=== PATIENT | female | born 1945 ===

== ENCOUNTER 2021-01-11 16:12 | Emergency (ER) | payer MEDICARE, SELFPAY ==
--- NOTE | ~2021-01-11 | XR_ITS ---
XR shoulder RT min 2V DATE: 01/11/2021 17:00 INDICATION: Fall. Limited range of motion of shoulder, minimal right shoulder pain TECHNIQUE: 4 views COMPARISON: None FINDINGS: There is diffuse osteopenia. There are degenerative changes of the right acromioclavicular and glenohumeral joints. No fracture or dislocation, periosteal reaction or bone destruction or abnormal right shoulder soft tissue calcific ation is evident. Probable rotator cuff atrophy. There is prominent degenerative disc disease at C5-6 and C6-7. There is scoliosis and degenerative spurring of the thoracic spine. IMPRESSION: Diffuse osteopenia No fracture or dislocation of right shoulder Degenerative changes at the right acromioclavicular and glenohumeral joints Probable rotator cuff atrophy. Reviewed, dictated and finalized at location A.
--- NOTE | ~2021-01-11 | XR_ITS ---
XR elbow RT 2V DATE: 01/11/2021 17:00 INDICATION: Fall. Right upper extremity pain, limited motion TECHNIQUE: AP and lateral views COMPARISON: None FINDINGS: No fracture or dislocation or joint effusion. No periosteal reaction or bone destruction. IMPRESSION: No significant abnormality of right elbow Reviewed, dictated and finalized at location A.
--- NOTE | ~2021-01-11 | XR_ITS ---
XR ribs RT 2V DATE: 01/11/2021 17:00 INDICATION: Fall. Lateral right rib pain at rest level TECHNIQUE: 4 views of right ribs COMPARISON: 01/08/2017 two-view chest FINDINGS: There is diffuse osteopenia. No displaced right rib fracture is detected. The included lung del valle are clear. No pleural effusion or pneumothorax is noted on the right. There is scoliosis and degenerative spurring of the thoracic spine. Surgical clips, right upper quadrant, consistent with cholecystectomy. IMPRESSION: No displaced right rib fracture detected Diffuse osteopenia Reviewed, dictated and finalized at location A.
[2021-01-11 16:37] VITALS: BP 142/64; PULSE 63; RESP 18; TEMP 36.9; O2SAT 97
--- NOTE | 2021-01-11 17:02 | ED.FALL ---
HPI - Fall General Chief Complaint: Fall Stated Complaint: fell yesterday, R arm pain, R sided rib pain Source: patient and family Mode of arrival: ambulatory History of Present Illness HPI Narrative: this is a 76-year-old female with history of Parkinson's disease, of some at home and going out on to her outdoor patio and tripped and fell causing pain to her right shoulder and arm and right rib area, currently pain level is about a 4/10 has decreased range of motion secondary to pain. There is no shortness of breath no chest pain no fever chills no loss of consciousness. complaint: fall Onset (ago): day(s) Fall from: standing Fall witnessed: yes, by family Place fall occurred: home Loss of consciousness: none Prolonged down time: no Symptoms prior to fall: none and other Context: tripped/slipped Related Data Home Medications Medication Instructions Recorded Confirmed anastrozole 1 mg PO DAILY 01/11/21 01/11/21 aspirin 81 mg PO DAILY 01/11/21 01/11/21 cyclosporine [Restasis] 1 drp EACH EYE BID 01/11/21 01/11/21 donepezil 10 mg PO DAILY 01/11/21 01/11/21 metformin 500 mg PO DAILY 01/11/21 01/11/21 mirtazapine 7.5 mg PO DAILY 01/11/21 01/11/21 multivit with min-folic acid 1 tablet PO DAILY 01/11/21 01/11/21 [Adult Multivitamin Extra VitD3] propranolol 120 mg PO DAILY 01/11/21 01/11/21 quetiapine 25 mg PO HS 01/11/21 01/11/21 sertraline 50 mg PO DAILY 01/11/21 01/11/21 Allergies Allergy/AdvReac Type Severity Reaction Status Date / Time celecoxib Allergy Unknown Verified 06/28/15 10:54 NKDA/ NO LATEX ALLERGY Allergy Unknown Uncoded 10/19/02 15:24 NKFA Allergy Unknown Uncoded 10/19/02 15:24 Review of Systems Review of Systems: All systems reviewed & are unremarkable except as noted in HPI and below PMFSH Past Medical History Medical History Parkinsons disease Family History Family History Father Family history of lung cancer Family history of heart disease in male family member before age 55 Mother Family history of emphysema Sister Family history of type 2 diabetes mellitus Familial Alzheimer's disease of late onset Father Acute myocardial infarction Family history of malignant neoplasm Social History Social History Smoking status: Never smoker Exam Const: General: no acute distress Orientation/consciousness: patient oriented x3 HENMT: Head: normal to inspection Eyes: Conjunctivae: conjunctivae normal Pupils: Equal, round and reactive pupils present EOM: EOMs intact bilaterally Neck: Neck: normal visual inspection, no lymphadenopathy and no meningeal signs Chest: Chest palpation & inspection: normal inspection of the chest Resp: Effort & Inspection: normal respiratory effort Auscultation: clear to auscultation bilaterally Cardio: Rate: regular rate Rhythm: regular rhythm GI: Auscultation: normal bowel sounds : General: Yes no CVA tenderness Back/Spine/Pelvis: Back: no CVA tenderness Skin: General skin exam: normal color Rashes: no rashes Neuro: General: patient oriented x3 and moves all extremities Extrem: Other: has decreased range of motion right shoulder and tenderness in the right rib area with palpation Psych: Mental Status: mental status grossly normal Affect: normal affect Course Course Emergency Course: patient declined pain medication, she states that her pain level is tolerable just sitting without movement, x-rays reviewed the patient Vital Signs Vital signs: Vital Signs Temperature 36.9 C 01/11/21 16:37 Pulse Rate 63 01/11/21 16:37 Respiratory Rate 18 01/11/21 16:37 Blood Pressure 142/64 H 01/11/21 16:37 Pulse Oximetry 97 01/11/21 16:37 Temperature 36.9 C 01/11/21 16:37 Pulse Rate 63 01/11/21 16:37 Respiratory Rate 18 01/11/21 16:37 Blood Pressure
== END 2021-01-11 17:36 | disposition home or self-care (01) ==
PROVIDERS: Emergency Provider Emergency Medicine; PCP Physician Assistant
DX: S46.001A Unspecified injury of muscle(s) and tendon(s) of the rotator cuff of right shoulder, initial encounter (principal); W01.0XXA Fall on same level from slipping, tripping and stumbling without subsequent striking against object, initial encounter
CPT/HCPCS: 71100; 73030; 73070; 99282; 99284; A4565

== ENCOUNTER 2021-10-09 11:18 | Outpatient (CLI) | payer MEDICARE, SELFPAY ==
--- NOTE | ~2021-10-09 | XR_ITS ---
XR lumbar spine 2-3V DATE: 10/09/2021 11:41 INDICATION: Low back pain, bilateral leg weakness. TECHNIQUE: AP, lateral, coned lateral lumbosacral views COMPARISON: Numerous MRI lumbar spine 06/17/2014 lumbar spine FINDINGS: There is diffuse osteopenia. Included lower thoracic and lumbar pedicles are intact. No fracture or bone destruction of the lumbar spine. There is mild degenerative disc disease, with mi ld degenerative spurring. There is degenerative change at the sacroiliac joints. Status post cholecystectomy. IMPRESSION: Osteopenia Mild degenerative change of the lumbar spine Reviewed, dictated and finalized at location A.
== END 2021-10-09 11:19 | disposition home or self-care (01) ==
LOC: CHSIMG 11:20
PROVIDERS: PCP Physician Assistant; Visit Provider Physician Assistant
DX: M54.51 Vertebrogenic low back pain (principal)
CPT/HCPCS: 72100

== ENCOUNTER 2024-06-25 12:01 | Emergency (ER) | payer MEDICARE, SELFPAY ==
[2024-06-25 12:03] VITALS: BP 156/102; PULSE 66; RESP 20; TEMP 36.7; O2SAT 100
--- NOTE | 2024-06-25 12:11 | ED.UPPEXIN ---
HPI - Extremity Injury (Upper) General Chief Complaint: Extremity Injury, Upper Stated Complaint: numbness to left arm Time Seen by Provider: 06/25/24 12:02 Source: patient Mode of arrival: ambulatory Limitations: no limitations History of Present Illness HPI narrative: Patient is an 79-year-old female with left upper extremity tingling and pain for the past 3 days. She also has some right lower extremity similar symptoms of tingling and pain for the past day. No chest pain or shortness of breath. No other neurological complaints or deficits. No definite injury. patient has Parkinson's and dementia. MD complaint: injury to: left, shoulder, arm and forearm Onset (ago): day(s) ( Three) Other injuries: none Place: home Severity: mild Severity scale (1-10): 3 Relieving factors: none Exacerbating factors: none Context: other ( no injury; patient having left upper extremity and right lower extremity pain and numbness at times) Associated symptoms: denies other symptoms Treatments prior to arrival: other ( none) Related Data Home Medications ?Medication ?Instructions ?Recorded ?Confirmed ?Last Taken ?Type anastrozole 1 mg tablet 1 mg PO DAILY 01/11/21 01/11/21 Unknown History donepezil 10 mg tablet 10 mg PO DAILY 01/11/21 01/11/21 Unknown History sertraline 50 mg tablet 50 mg PO DAILY 01/11/21 01/11/21 Unknown History atorvastatin 10 mg tablet (Lipitor) 10 mg PO DAILY 06/25/24 Unknown History losartan 50 mg tablet (Cozaar) 50 mg PO DAILY 06/25/24 Unknown History memantine 10 mg tablet (Namenda) 10 mg PO BID 06/25/24 Unknown History Allergies Allergy/AdvReac Type Severity Reaction Status Date / Time celecoxib Allergy Mild Unknown Verified 06/25/24 13:07 Review of Systems Review of Systems: All systems reviewed & are unremarkable except as noted in HPI and below Constitutional: Constitutional: Reports no additional constitutional complaints Eyes: Eyes: Reports no additional eye complaints ENT: Reports system reviewed and no additional complaints, except as documented Cardiovascular: Cardiovascular: Reports no additional cardiovascular complaints Respiratory: Respiratory: Reports no additional respiratory complaints Gastrointestinal: Gastrointestinal: Reports no additional gastrointestinal complaints Genitourinary: Genitourinary: Reports no additional female genitourinary complaints Musculoskeletal: Musculoskeletal: Reports no additional musculoskeletal complaints Integumentary/Breasts: Skin/Breast: Reports system reviewed and no additional complaints, except as docu Neurologic: Reports system reviewed and no additional complaints, except as documented Psychiatric: Psychiatric: Reports no additional psychiatric complaints Endocrine: Endocrine: Reports no additional endocrine complaints Hematologic/Lymphatic: Hematologic/Lymphatic: Reports no additional hematologic/lymphatic complaints Allergic/Immunologic: Allergic/Immunologic: Reports no additional allergic/immunologic complaints PMFSH Past Medical History Medical History Parkinsons disease Family History Family History Father Family history of lung cancer Family history of heart disease in male family member before age 55 Mother Family history of emphysema Sister Family history of type 2 diabetes mellitus Familial Alzheimer's disease of late onset Father Acute myocardial infarction Family history of malignant neoplasm Social History Social History Smoking status: Never smoker Exam Const: General: healthy appearing Nutritional Appearance: well nourished Orientation/consciousness: patient oriented x3 Limitations: no limitations HENMT: Head: normal to inspection Ears: external ears normal Face/Nose/Sinus: Normal external nose present Eyes: Conjunctivae: conjunctivae normal Pupils: Equal, round and reactive pupils present EOM: EOMs intact bilaterally Neck: Neck: normal visual inspection Chest: Chest palpation & inspection: normal inspection of the chest Resp: Effort & Inspection: normal respiratory effort and not labored Auscultation: clear to auscultation bilaterally and no crackles Cardio: Rate: regular rate Rhythm: regular rhythm Heart sounds: no murmurs GI: Inspection: non-distended GI Palp: Yes Soft to palpation and No Tenderness to palpation present (GI) Auscultation: normal bowel sounds : General: Yes bladder normal to palpation Back/Spine/Pelvis: Back: no CVA tenderness Skin: General skin exam: normal color Rashes: no rashes Wounds: no wounds Neuro: General: patient oriented x3, moves all extremities, no meningeal signs, no focal motor deficits and CN's II-XI intact bilaterally Cranial nerves: Yes Nystagmus not present Speech: normal speech Gait exam (Neuro): Normal gait present Other: Fast exam negative, NIH score is 0, GCS is 15 Extrem: General: normal to inspection Psych: Mental Status: mental status grossly normal Affect: normal affect Attitude: cooperative Other: baseline dementia Course Vital Signs Vital signs: Vital Signs Temperature 36.7 C 06/25/24 12:03 Pulse Rate 66 06/25/24 12:03 Respiratory Rate 20 06/25/24 12:03 Blood Pressure 156/102 H 06/25/24 12:03 Pulse Oximetry 100 06/25/24 12:03 Oxygen Delivery Room Air 06/25/24 12:03 Temperature 36.7 C 06/25/24 12:03 Pulse Rate 66 06/25/24 12:03 Respiratory Rate 20 06/25/24 12:03 Blood Pressure 156/102 H 06/25/24 12:03 Pulse Oximetry 100 06/25/24 12:03 Oxygen Delivery Room Air 06/25/24 12:03 MDM - Extremity Injury (Upper) MDM Narrative Medical decision making narrative: patient is an 79-year-old female with left upper extremity and right lower extremity numbness and pain at times. No focal neurological deficits otherwise. We will do a workup at this time. EKG done on entry was negative. Complete workup was negative for acute process. Likely this is impingement of her cervical spine or left shoulder area as well as the lumbar spine or knee impingements. We will try steroids and muscle relaxant. Lab Data Attestation: I reviewed the patient's lab results. 06/25/24 12:54 06/25/24 12:54 Labs: Lab Results 06/25/24 06/25/24 Range/Units 12:54 14:55 WBC 7.7 (4.8-10.8) K/mm3 RBC 4.16 L (4.20-5.40) M/mm3 Hgb 11.9 (11.7-13.8) g/dL Hct 38.1 (35.0-42.0) % MCV 91.6 (78.0-102.0) fL MCH 28.6 (27.0-31.0) pg MCHC 31.2 L (32-36) g/dL RDW 13.4 (11.6-14.4) % Plt Count 286 (150-420) K/mm3 MPV 8.8 L (9.2-11.8) fl Immature Gran % (Auto) 0.5 H (0.0-0.0) % Neut % (Auto) 73.7 H (50.0-70.0) % Lymph % (Auto) 16.4 L (18.0-42.0) % Grant % (Auto) 7.2 (2.0-11.0) % Eos % (Auto) 1.4 (1.0-6.0) % Baso % (Auto) 0.8 (0.0-1.0) % Lymph # (Auto) 1.26 (1.10-4.50) K/mm3 Grant # (Auto) 0.55 (0.10-0.90) K/mm3 Eos # (Auto) 0.11 (0.02-0.50) K/mm3 Baso # (Auto) 0.06 (0.00-0.10) K/mm3 Abs Immat Gran (auto) 0.04 H (0.00-0.00) K/mm3 Absolute Neuts (auto) 5.67 (1.70-7.20) K/mm3 Absolute Nucleated RBC 0.00 (0.00-0.00) K/mm3 Nucleated RBC % 0.0 (0-0.0) % PT 10.8 (9.50-12.1) Seconds INR 1.0 APTT 27.6 (23.9-30.70) Sec Sodium 139 (136-145) mmol/L Potassium 4.4 (3.5-5.1) mmol/L Chloride 101 (98-108) mmol/L Carbon Dioxide 27 (21-32) mmol/L Anion Gap 11 (4-12) mmol/L BUN 21 H (7-18) mg/dL Creatinine 0.96 (0.55-1.02) mg/dL Estim Creat Clear Calc 39 ml/min Estimated GFR 56 L (59 - ) Glucose 103 H (70-99) mg/dL Calculated Osmolality 291 (285-295) mOsm/kg Calcium 9.8 (8.5-10.1) mg/dL Total Bilirubin 0.5 (0.00-1.00) mg/dL AST 14 L (15-37) U/L ALT 15 (14-59) U/L Alkaline Phosphatase 81 (46-116) U/L Troponin I 6.4 (0.00-60.4) ng/L Total Protein 7.0 (6.4-8.2) g/dL Albumin 3.8 (3.4-5.0) g/dL Urine Color Light yellow (Yellow) Urine Appearance Clear (Clear) Urine pH 6.0 (5.0-8.0) Ur Specific Deal 1.010 (1.010-1.020) Urine Protein Negative (Negative) Urine Glucose (UA) Negative (Negative) Urine Ketones Negative (Negative) Ur Blood (Man) Negative (Negative) Urine Nitrate Negative (Negative) Urine Bilirubin Negative (Negative) Urine Urobilinogen 0.2 (0.2-1.0) mg/dL Leukocyte Esterase Rfl Negative (Negative) DEEP/UL Imaging Data Attestation: I personally reviewed and interpreted this imaging study as follows: Radiologist's impression: CT scan of the head was negative for acute process CT C-spine shows acute strain but otherwise no acute findings ECG Data EKG #1: Attestation: I personally reviewed and interpreted this ECG as follows: ECG completion date: 06/25/24 ECG completion time: 12:36 EKG Interpretation: normal rate, sinus rhythm, no ectopy, non-specific ST changes, normal QRS, normal QT and left axis Discharge Plan Discharge Clinical Impression: Cervical radiculopathy, Lumbar radiculopathy Patient Disposition: Home, Self-Care Condition: Stable Instructions: Lumbar Radiculopathy (ED), Cervical Radiculopathy (ED) Patient Language: Namibian Prescriptions: New methylprednisolone [Medrol (Aidan)] 4 mg tablets,dose pack See Rx Instructions .ROUTE .COMPLEX Qty: 21 0RF Rx Instructions: orally per package directions cyclobenzaprine 5 mg tablet 5 mg PO BID PRN (Reason: pain) Qty: 20 0RF No Action atorvastatin [Lipitor] 10 mg tablet 10 mg PO DAILY memantine [Namenda] 10 mg tablet 10 mg PO BID losartan [Cozaar] 50 mg tablet 50 mg PO DAILY anastrozole 1 mg tablet 1 mg PO DAILY donepezil 10 mg tablet 10 mg PO DAILY sertraline 50 mg Tablet 50 mg PO DAILY Follow-up/Referrals: Tabatha,PRASANNA Lugo [Primary Care Provider] - Time of Disposition: 15:28
[2024-06-25 12:58] LABS: Basophils Absolute Auto 0.06 K/mm3 (0.00-0.10); Basophils Percent Auto 0.8 % (0.0-1.0); Eosinophils Absolute Auto 0.11 K/mm3 (0.02-0.50); Eosinophils Percent Auto 1.4 % (1.0-6.0); Hematocrit 38.1 % (35.0-42.0); Hemoglobin 11.9 g/dL (11.7-13.8); Immature Granulocyte Absolute 0.04 K/mm3 (0.00-0.00); Immature Granulocyte Percent A 0.5 % (0.0-0.0); Lymphocytes Absolute Auto 1.26 K/mm3 (1.10-4.50); Lymphocytes Percent Auto 16.4 % (18.0-42.0); Mean Corpuscular HGB Conc 31.2 g/dL (32-36); Mean Corpuscular Hemoglobin 28.6 pg (27.0-31.0); Mean Corpuscular Volume 91.6 fL (78.0-102.0); Mean Platelet Volume 8.8 fl (9.2-11.8); Monocytes Absolute Auto 0.55 K/mm3 (0.10-0.90); Monocytes Percent Auto 7.2 % (2.0-11.0); Neutrophils Absolute Auto 5.67 K/mm3 (1.70-7.20); Neutrophils Percent Auto 73.7 % (50.0-70.0); Platelet Count Result 286 K/mm3 (150-420); Red Blood Count 4.16 M/mm3 (4.20-5.40); Red Cell Distribution Width 13.4 % (11.6-14.4); White Blood Count 7.7 K/mm3 (4.8-10.8)
[2024-06-25 13:12] LABS: Partial Thromboplastin Time 27.6 Sec (23.9-30.70); Prothrombin Time 10.8 Seconds (9.50-12.1)
[2024-06-25 13:14] LABS: Alanine Aminotransferase 15 U/L (14-59); Albumin Level 3.8 g/dL (3.4-5.0); Alkaline Phosphatase 81 U/L (46-116); Anion Gap 11 mmol/L (4-12); Aspartate Amino Transferase 14 U/L (15-37); Bilirubin,Total 0.5 mg/dL (0.00-1.00); Blood Urea Nitrogen 21 mg/dL (7-18); Calcium 9.8 mg/dL (8.5-10.1); Carbon Dioxide 27 mmol/L (21-32); Chloride 101 mmol/L (98-108); Estimated CRCL calculation 39 ml/min; Estimated Glomerular Filt Rate 56; Glucose 103 mg/dL (70-99); Osmolality Calculated 291 mOsm/kg (285-295); Potassium 4.4 mmol/L (3.5-5.1); Sodium 139 mmol/L (136-145)
[2024-06-25 13:17] LABS: Troponin I 6.4 ng/L (0.00-60.4)
[2024-06-25 15:17] LABS: Add Urine Microscopic? NO; Appearance Urine Clear (Clear); Bilirubin Urine Negative (Negative); Blood Urine Negative (Negative); Color Urine Light Yellow (Yellow); Glucose Urine UA Negative (Negative); Ketones Urine Negative (Negative); Leukocyte Esterase Ur Negative LEU/UL (Negative); Nitrate Urine Negative (Negative); Protein Urine Negative (Negative); Urobilinogen Urine 0.2 mg/dL (0.2-1.0)
[2024-06-25 15:50] VITALS: BP 161/73; PULSE 65; RESP 20; TEMP 37.1; O2SAT 99
== END 2024-06-25 15:50 | disposition home or self-care (01) ==
PROVIDERS: Emergency Provider Emergency Medicine; PCP Physician Assistant
DX: M54.12 Radiculopathy, cervical region (principal); M54.16 Radiculopathy, lumbar region; G20.A1 Parkinson's disease without dyskinesia, without mention of fluctuations; Z79.899 Other long term (current) drug therapy
CPT/HCPCS: 36415; 70450; 72125; 80053; 81003; 84484; 85025; 85610; 85730; 93005; 99284

== ENCOUNTER 2025-03-30 09:22 | Outpatient (CLI) | payer MEDICARE, SELFPAY ==
[2025-03-30 10:02] LABS: Alanine Aminotransferase 19 U/L (6-35); Albumin Level 4.6 g/dL (3.5-5.1); Alkaline Phosphatase 68 U/L (38-126); Anion Gap 10 mmol/L (4-12); Aspartate Amino Transferase 26 U/L (14-36); Bilirubin,Total 0.5 mg/dL (0.2-1.3); Blood Urea Nitrogen 25 mg/dL (7-17); Calcium 10.2 mg/dL (8.4-10.2); Carbon Dioxide 29 mmol/L (22-30); Chloride 103 mmol/L (98-107); Estimated Glomerular Filt Rate 56; Glucose 134 mg/dL (65-110); Osmolality Calculated 300 mOsm/kg (285-295); Potassium 4.5 mmol/L (3.4-5.0); Sodium 142 mmol/L (137-145); Total Protein 6.8 g/dL (6.3-8.2)
--- OUTSIDE RECORDS SUMMARY | 2025-03-30 10:17 | XMS_ITS | Clinical Summary ---
Author Organization [facility] Address [address] [place] [address] Care Team Providers Care Guide Dog Mobility Instructor Name Role Phone Fly Mays Primary Care Provider [phone] Allergies Active Allergy Reactions Criticality Noted Date Comments Celecoxib Flushing (skin) Low 01/29/2022 Medications cholecalciferol (VITAMIN D-3) 2000 unit tablet Take by mouth Active aspirin 81 mg enteric coated tablet Take 1 tablet (81 mg total) by mouth daily Active cyanocobalamin (Vitamin B-12) 1,000 mcg tablet Take 1 tablet (1,000 mcg total) by mouth daily Active anastrozole (ARIMIDEX) 1 mg tablet Take 1 tablet (1 mg total) by mouth daily 2 Active ascorbic acid (VITAMIN C) 100 mg tablet Take 2 tablets (200 mg total) by mouth daily Active atenoloL-chlort halidone (TENORETIC) 50-25 mg per tablet Take 1 tablet by mouth daily Active QUEtiapine (SEROquel) 25 mg tablet Take 1 tablet (25 mg total) by mouth nightly 30 tablet 5 3 Active Additional Information Patient not taking.Reported on 12/13/2024 sertraline (ZOLOFT) 50 mg tablet 3 Active atorvastatin (LIPITOR) 10 mg tablet Take 1 tablet (10 mg total) by mouth daily Active donepeziL (ARICEPT) 10 mg tabletIndicatio ns:Alzheimer's disease with late onset (HCC) TAKE 1 TABLET BY MOUTH ONCE DAILY 90 tablet 3 5 Active memantine (NAMENDA) 10 mg tabletIndicatio ns:Alzheimer's disease with late onset (HCC) TAKE 1 TABLET BY MOUTH TWICE DAILY 180 tablet 3 5 Active losartan (COZAAR) 50 mg tablet 5 Active Active Problems Problem Noted Date Diagnosed Date Hallucination, visual 10/18/2022 ARIE (obstructive sleep apnea) 08/23/2022 Morbid (severe) obesity due to excess calories 0 07/24/2022 Alzheimer's disease with late onset 01/29/2022 Assessment & Plan (09/16/2022 11:27 AM CDT): Continue namenda 10mg twice daily by mouth Follow up in 6 months Will discuss anxiety component with PCP; discussed in detail with patient and daughter Surgical History Surgery Date Site/Laterality Comments TUBAL LIGATION PARTIAL HYSTERECTOMY 04/28/1977 - 04/27/1978 BREAST LUMPECTOMY 04/28/2015 - 04/27/2016 Left CHOLECYSTECTOMY 04/28/2012 - 04/27/2013 INCONTINENCE SURGERY FL FLUORO GUIDED LUMBAR PUNCTURE 03/08/2022 Right Medical History Medical History Date Comments Hypertension Cancer (HCC) History of breast cancer Obesity (BMI 35.0-39.9 without comorbidity) Diabetes mellitus on metformin Urinary incontinence Tremor of both hands Family History Medical History Relation Name Comments Alcohol abuse Brother Aneurysm Brother Allergies Child 1 missy Hypertension Child 1 missy Hypothyroidism Child 1 missy Adrenal disorder Child 2 fatimah Bipolar disorder Child 2 fatimah Migraines Child 2 fatimah Bipolar disorder Child 3 otto Macular degeneration Child 3 otto Heart attack Father Lung cancer Father Emphysema Mother Alzheimer's disease Sister 1 Dementia Sister 1 Alzheimer's disease Sister 2 Relation Name Status Comments Brother Child 1 msisy Alive Child 2 fatimah Alive Child 3 otto Alive Father Mother Sister 1 Sister 2 Alive Social History Tobacco Use Types Packs/Day Years Used Date Smoking Tobacco: Never Tobacco Cessation:Counseling Given: Not Answered Comments Unknown Sex and Gender Information Value Date Recorded Sex Assigned at Not on file Legal Sex Female 12:18 PM 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 Gender Identity Not on file Sexual Orientation Not on file Last Filed Vital Signs Vital Sign Reading Time Taken Comments Blood Pressure 122/58 12/13/2024 10:12 AM CDT Pulse 61 12/13/2024 10:12 AM CDT Temperature 36 C (96.8 F) 03/08/2022 10:30 AM 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 Respiratory Rate 18 03/28/2023 9:26 AM 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 Oxygen Saturation 97% 12/13/2024 10:12 AM CDT Inhaled Oxygen Concentration - - Weight 78.3 kg (172 lb 9.6 oz) 12/13/2024 10:12 AM CDT Height 152.4 cm (5') 12/13/2024 10:12 AM CDT Body Mass Index 33.71 12/13/2024 10:12 AM CDT Plan of Treatment Health Maintenance Due Date Last Done Comments Depression Screening 1945 DTaP/Tdap/Td Vaccine (1 - Tdap) 01/03/1955 Hepatitis B Screening 01/03/1962 Pneumococcal vaccine 65+ (1 of 2 - PCV) 01/03/1963 Well Visit 65+ 01/03/2009 Zoster Vaccine (2 of 2) 05/31/2022 04/05/2022, 12/18 Fall Risk Assessment 03/08/2023 03/08/2022 Covid-19 Vaccine (5 - 2024-2 6 season) 2024 08/16/2021, 02/22/2021, 08/04/2020, Additional history exists Influenza Vaccine (#1) 2024 , 03/19/2021, 02/17/2020, Additional history exists Osteoporosis Screening-Bone Density Scan 06/13/2025 06/13/2023, 06/13/2023, 02/28/2020, Additional history exists Insurance [facility] [place] [address] [facility] [employer] [employer] Advance Directives For more information, please contact: [phone] * Full Code (Latest Code Status on File) Date Activated Date Inactivated Comments 03/08/2022 9:25 AM 03/09/2022 5:00 AM Care Teams Guide Dog Mobility Instructor Relationship Specialty Start Date End Date Fly Mays PA [address] [place] [address] PCP - General Family Practice 01/13/21
--- OUTSIDE RECORDS SUMMARY | 2025-03-30 10:17 | XMS_ITS | Encounter Summary ---
Author Organization [facility] Address [address] [place] [address] Phone Care Team Providers Care Edging Machine Feeder Name Role Phone Fly Canales MD Unavailable Dom Nair MD Unavailable Unavailable Duke Harden MD Unavailable [phone] Fly Mays Primary Care Provider [phone] Reason for Visit * Reason Comments Medication Refill Encounter Details Date Type Department Care Team (Late st Contact Info) Description 04/08/2022 Refill [facility] [address] [place] [phone] Duke Harden MD [address] [place] [address] Medication Refill Social History Tobacco Use Types Packs/Day Years Used Date Smoking Tobacco: Never Smokeless Tobacco: Never Alcohol Use Standard Drinks/Week Comments No 0 (1 standard drink = 0.6 oz pur e alcohol) Sexually Active Control Partners Comments Never Comments No Sex and Gender Information Value Date Recorded Sex Assigned at Not on file Legal Sex Female 9:05 PM CDT Gender Identity Not on file Sexual Orientation Not on file COVID-19 Exposure Response Date Recorded In the last 10 days, have yo u been in contact with someone who was confirmed or suspected to have Coronavirus/COVID-19? No / Unsure 04/11/2022 8:22 AM MEDICAL EQUIPMENT TECHNICIAN documented as of this encounter Miscellaneous Notes * Telephone Encounter - Honey Barn RN - 04/08/2022 11:56 AM CST Refilled Anastrazole per last f/u note. Follow up in 5 months. CAL EQUIPMENT TECHNICIAN documented in this encounter Plan of Treatment Upcoming Encounters Date Type Department Care Team (Late st Contact Info) Description 04/05/2025 1:20 PM MEDICAL EQUIPMENT TECHNICIAN Office Visit [facility] Oncology Services [address] [place] [phone] Duke Harden MD [address] [place] [phone] Discharge Disposition: Discharged to home or Selfcare 04/05/2025 2:00 PM MEDICAL EQUIPMENT TECHNICIAN Clinical Support [facility] [address] [place] [phone] Duke Harden MD [address] [place] [id number] Discharge Disposition: Discharged to home or Selfcare documented as of this encounter Visit Diagnoses Diagnosis Breast cancer, stage 1, estrogen receptor positive, left documented in this encounter Care Teams Edging Machine Feeder Relationship Specialty Start Date End Date Fly Mays PAC [address] [place] [id number] PCP - General Physician Mineralogy Teacher 01/18/21 Fly Canales MD Consulting Physician Radiation Oncology 02/18/17 Dom Nair MD Consulting Physician General Surgery 03/24/17 Duke Harden MD [address] [place] [address] Consulting Physician Medical Oncology 01/11/20 documented as of this encounter
--- OUTSIDE RECORDS SUMMARY | 2025-03-30 10:17 | XMS_ITS ---
Author Organization [facility] Address [address] [place] [address] Phone Care Team Providers Care Assembly Person Name Role Phone Fly Canales MD Unavailable [phone] Dom Nair MD Unavailable Unavailable Duke Harden MD Unavailable [phone] Fly Mays Primary Care Provider [phone] Active Problems Problem Noted Date Diagnosed Date Obesity, Class II, BMI 35-39.9 04/16/2018 Overview (10/20/2018): BMI 38.17 on 04/16/2018. Low bone mass 02/06/2018 Stage 1 breast cancer, ER+, left 01/27/2018 Overview (04/26/2019): Pathological stage IB ([id number]) grade 2 ER/MT positive and HER2 negative IDC of her left breast. She had breast conserving surgery 01/20/2017. She was seen in Medical Oncology consultation not recommended to receive chemotherapy but was placed on Arimidex January 2017. She completed left breast radiotherapy 04/15/2017. Postmenopausal state 01/27/2018 History of therapeutic radiation 05/20/2017 Overview (05/20/2017): Completed left breast radiotherapy 04/15/2017 Prophylactic use of anastrozole (Arimidex) 03/17 Overview (01/15/2023): Started January 2017 with plan for 10 year duration because of breast cancer index score. Encounter for screening mamm ogram for malignant neoplasm of breast 02/19/2017 Obstructive sleep apnea hue tila with continuous positive airway pressure (CPAP) Current Treatment and Therapy Plans SUPPORT - PROLIA (DENOSUMAB) - OSTEOPENIA* Plan Start Date:02/22/2018 Plan Provider:Harvey Liriano MD Linked Problems Stage 1 breast cancer, ER+, leftLow bone mass Treatment Medications Current Day (Day 1, Cycle 15 - Planned for 10/04/2024) No medications scheduled. No medications schedul ed. Past Treatment and Therapy Plans No past plan information found. Resolved Problems Problem Noted Date Diagnosed Date Resolved Date Bleeding hemorrhoids 04/16/2018 019 Overview (10/20/2018): Off and on since childbirth but March 2018 had a more significant amount prompting her to go to the ED. Obesity, Class III, BMI 40-4 9.9 (morbid obesity) 10/08/2017 04/16/2018 History of left breast cancer 05/20/2017 10/20/2018 Overview (05/20/2017): Pathological stage IB ([id number]) grade 2 ER/MT positive and HER2 negative IDC of her left breast. She had breast conserving surgery. She was seen in Medical Oncology consultation not recommended to receive chemotherapy but was placed on Arimidex. She completed left breast radiotherapy 04/15/2017. Adverse effect of radiation 03/31/2017 05/20/2017 Metastatic cancer to axillary lymph nodes 03/24/2017 05/20/2017 Acute radiation dermatitis 03/24/2017 0 05/20/2017 Status post partial mastectomy of left breast 03/17/20 17 10/20/2018 Overview (03/17/2017): 01/20/2017 in conjunction with a left axillary sentinel lymph node biopsy. Status post lymph node biopsy 03/17/2017 10/20/2018 Overview (03/17/2017): Left axillary sentinel lymph node biopsy 01/20/2017 in conjunction with a left partial mastectomy. Obesity, Class II, BMI 35-39.9 03/17/2017 10/20/2018 Malignant neoplasm of upper- outer quadrant of left breast in female, estrogen receptor positive 02/27/2017 05/20/2017
--- OUTSIDE RECORDS SUMMARY | 2025-03-30 10:17 | XMS_ITS | Clinical Summary ---
Author Organization [facility] Address [address] [place] [address] Phone Care Team Providers Care Hand Printed Circuit Board Assembler Name Role Phone Fly Canales MD Unavailable [phone] Dom Nair MD Unavailable Unavailable Duke Harden MD Unavailable [phone] lFy Mays Primary Care Provider [phone] Allergies Active Allergy Reactions Criticality Noted Date Comments Celecoxib Itching 02/18/2017 Medications lisinopril (PRINIVIL, ZESTRIL) 5 MG Tablet Take 40 mg by mouth daily. Active Cyanocobalamin (VITAMIN B-12) 1000 MCG Tablet Take 1,000 mcg by mouth daily. Active Cholecalciferol (VITAMIN D) 2000 UNIT Tablet Take by mouth. Activ e denosumab (PROLIA) 60 MG/ML SolutionIndicat ions:every 6 months 60 mg by Subcutaneous route once. Indications: every 6 months Active atenolol-chlort halidone (TENORETIC) 50-25 MG Tablet Take 1 Tablet by mouth daily. Active memantine (NAMENDA) 10 MG Tablet Take 1 Tablet by mouth 2 times daily. 3 Active donepezil (ARICEPT) 5 MG Tablet Take 10 mg by mouth nightly. 3 Active Ascorbic Acid 100 MG Tablet Take 200 mg by mouth. Active Propranolol HCl SR Beads 120 MG CAPSULE SR 24 HR Take 120 mg by mouth. Active atorvastatin (LIPITOR) 10 MG Tablet Take 10 mg by mouth daily. Active anastrozole (ARIMIDEX) 1 MG TabletIndicatio ns:Breast cancer, stage 1, estrogen receptor positive, left TAKE 1 TABLET BY MOUTH DAILY 90 Tablet 3 5 Active Active Problems Problem Noted Date Diagnosed Date Obesity, Class II, BMI 35-39.9 04/16/2018 Overview (10/20/2018): BMI 38.17 on 04/16/2018. Low bone mass 02/06/2018 Stage 1 breast cancer, ER+, left 01/27/2018 Overview (04/26/2019): Pathological stage IB ([id number]) grade 2 ER/CA positive and HER2 negative IDC of her [...] tila with continuous positive airway pressure (CPAP) Resolved Problems Problem Noted Date Diagnosed Date Resolved Date Bleeding hemorrhoids 04/16/2018 019 Overview (10/20/2018): Off and on since childbirth but March 2018 had a more significant amount prompting her to go to the ED. Obesity, Class III, BMI 40-4 9.9 (morbid obesity) 10/08/2017 04/16/2018 History of left breast cancer 05/20/2017 10/20/2018 Overview (05/20/2017): Pathological stage IB ([id number]) grade 2 ER/CA positive and HER2 negative IDC of her [...] in female, estrogen receptor positive 02/27/2017 05/20/2017 Encounters Date Type Department Care Team Description 01/29/2025 [facility] [address] [place] [address] Duke Harden MD Medication Refill from Last 3 Months Family History Medical History Relation Name Comments Lung Cancer Father Smoker Diabetes Maternal Grandmother Emphysema Mother Breast Cancer Sister 1 Liver Disease Sister 2 Diabetes Sister 3 Hypertension Sister 3 Diabetes Sister 4 Relation Name Status Comments Father Maternal Grandmother Mother Sister 1 Sister 2 Sister 3 Sister 4 Social History Tobacco Use Types Packs/Day Years Used Date Smoking Tobacco: Never Smokeless Tobacco: Never Tobacco Cessation:Counseling Given: Not Answered Alcohol Use Standard Drinks/Week Comments No 0 [...] Sign Reading Time Taken Comments Blood Pressure 125/73 09/30/2024 1:19 PM CDT Pulse 71 09/30/2024 1:19 PM CDT Temperature 36.3 C (97.4 F) 09/30/2024 1:19 PM CDT Respiratory Rate 16 04/01/2024 12:5 9 PM FOREST FIRE MANAGEMENT OFFICER Oxygen Saturation 95% 09/30/2024 1:19 PM CDT Inhaled Oxygen Concentration - - Weight 79.7 kg (175 lb 11.2 oz) 09/30/2024 1:19 PM CDT Height 154.9 cm (5' 1) 09/30/2024 1:19 PM CDT Body Mass Index 33.2 09/30/2024 1:19 PM CDT Plan of Treatment Upcoming Encounters Date Type Department Care Team (Late st Contact Info) Description 04/05/2025 1:20 PM FOREST FIRE MANAGEMENT OFFICER [facility] [address] [place] [address] Duke Harden MD [address] [place] [address] Discharge Disposition: Discharged to home or Selfcare 04/05/2025 2:00 PM FOREST FIRE MANAGEMENT OFFICER [facility] [address] [place] [address] Duke Harden MD [address] [place] [address] Discharge Disposition: Discharged to home or Selfcare Health Maintenance Due Date Last Done Comments Hepatitis C Virus (HCV) Screening 1945 TdaP Immunization 1945 Medicare Initial AWV G0438 12/27/2009 Discussion re Stopping Mammograms 01/03/2019 Influenza Immunization (#1) 2024 10/05/2023, 02/01/2023, 02/26/2022, Additional history exists SARS-COV-2 Immunization ( season) 2024 02/17/2024, 02/01/2023, 03/18/2022, Additional history exists DEXA Bone Density 06/13/2025 06/13/2023, , 02/22/2019, Additional history exists Mammogram Unilateral 10/07/2025 10/07/2024, 06/13/2023, 04/11/2022, Additional history exists Pneumococcal Immunization (50+ years) Completed 07/01/2017, 02/08/2010 Pneumococcal Immunization Combined Discontinued 07/01/2017, 02/08/2010 Colonoscopy Discontinued 05/11/2018 Colorectal Cancer Screening Discontinued Zoster Immunization Completed 10/07/2023, 04/05/2022, 12/18/2012 Respiratory Syncytial Virus (RSV) Immunization (Adult) Completed 11/06/2023 Cologuard Discontinued Hepatitis B Immunization Aged Out No longer eligible based on patient's age to complete this topic Human Papillomavirus (HPV) Immunization Aged Out No longer eligible based on patient's age to complete this topic Immunochemical Fecal Occult Blood Discontinued Meningococcal Immunization (ACWY) Aged Out No longer eligible based on patient's age to complete this topic Rotavirus Immunization Aged Out No lo nger eligible based on patient's age to complete this topic Procedures Procedure Name Priority Date/Time Associated Diagnosis Comments [facility] SCREENING BILATERAL DIGITAL W CAD Routine 10/07/2024 2:09 PM CDT Encounter for screening mammogram for malignant neoplasm of breast [facility] BONE DENSITOMETRY AXIAL SKELETON Routine 06/13/2023 3:00 PM FOREST FIRE MANAGEMENT OFFICER Stage 1 breast cancer, ER+, left Postmenopausal state Low bone mass from Last 3 Months or Most Recently Relevant to Health Maintenance Results * [facility] SCREENING BILATERAL DIGITAL W CAD (10/07/2024 2:09 PM CDT) Anatomical Region Laterality Modality breast Bilateral Mammography 10/07/2024 2:06 PM CDT Narrative 10/08/2024 9:05 AM CDT - [facility] SCREENING BILATERAL DIGITAL W CAD BILATERAL DIGITAL SCREENING MAMMOGRAM WITH CAD WITH EXAGGERATED CC MEDIOLATERAL OBLIQUE CRANIOCAUDAL: 10/07/2024 The study was acquired using digital technology and interpreted from soft copy. Current study was also evaluated with ICAD version 7.2. CLINICAL: Routine screening. Patient has no complaints. She is not a candidate for 3D due to tremors. She has reduced range of motion. Exam performed in a wheelchair. Previous history of left breast cancer. Sister with postmenopausal breast cancer. COMPARISONS: Comparison is made to exams dated: 06/13/2023, 04/11/2022, and 04/02/2021 [facility]. BREAST TISSUE:There are scattered areas of fibroglandular density. FINDINGS: There are benign vascular calcifications in both breasts. There also are benign post operative findings in the left breast. No significant masses, calcifications, or other findings are seen in either breast. There has been no significant interval change. IMPRESSION: BENIGN There is no mammographic evidence of malignancy. A 1 year screening mammogram is recommended. A letter will be sent to the patient with these results. The patient will be entered into a reminder system with a target due date of 1 year for her next screening exam. Electronically signed by: Leonardo miles/dimitris:10/07/2024 22:49:04 Blood Typer(s): RT Maged(R)(M), [facility] letter sent: Normal Exam Reading location: [facility] Mammogram BI-RADS: Category 2: Benign Procedure Note Leonardo Caceres MD - 10/08/2024 - [facility] SCREENING BILATERAL DIGITAL W CAD BILATERAL DIGITAL SCREENING MAMMOGRAM WITH CAD WITH EXAGGERATED CC MEDIOLATERAL OBLIQUE CRANIOCAUDAL: 10/07/2024 The study was acquired using digital technology and interpreted from soft copy. Current study was also evaluated with ICAD version 7.2. CLINICAL: Routine screening. Patient has no complaints. She is not a candidate for 3D due to tremors. She has reduced range of motion. Exam performed in a wheelchair. Previous history of left breast cancer. Sister with postmenopausal breast cancer. COMPARISONS: Comparison is made to exams dated: 06/13/2023, 04/11/2022, and 04/02/2021 [facility]. BREAST TISSUE:There are scattered areas of fibroglandular density. FINDINGS: There are benign vascular calcifications in both breasts. There also are benign post operative findings in the left breast. No significant masses, calcifications, or other findings are seen in either breast. There has been no significant interval change. IMPRESSION: BENIGN There is no mammographic evidence of malignancy. A 1 year screening mammogram is recommended. A letter will be sent to the patient with these results. The patient will be entered into a reminder system with a target due date of 1 year for her next screening exam. Electronically signed by: Leonardo miles/dimitris:10/07/2024 22:49:04 Blood Typer(s): RT Maged(R)(M), [facility] letter sent: Normal Exam Reading location: [facility] Mammogram BI-RADS: Category 2: Benign [facility] Inez Harden MD IMG MAMMO ORDERABLES Fin al Result * [facility] BONE DENSITOMETRY AXIAL SKELETON (06/13/2023 3:00 PM FOREST FIRE MANAGEMENT OFFICER) Anatomical Region Laterality Modality BODY N/A Computed Radiogr aphy 06/13/2023 5:27 PM FOREST FIRE MANAGEMENT OFFICER Impressions 06/13/2023 5:29 PM FOREST FIRE MANAGEMENT OFFICER IMPRESSION: Low Bone Mass. REFERENCE: Bone mineral density: Normal (T-score above or = -1.0) Low bone mass (T-score between -1.0 and -2.5) replaces the previously used term osteopenia Osteoporosis (T-score = or below -2.5) Please see below follow up recommendations. Medical evaluation for secondary causes of low bone mineral density may be appropriate. FRAX is a World Health Organization validated fracture risk assessment tool that calculates a person's 10 year probability of a major osteoporosis related fracture and hip fracture. According to the National Osteoporosis Foundation guidelines, postmenopausal women and men age 50 or older with low bone mass and a 10 year probability of a major osteoporosis related fracture = or greater than 20% or a 10 year probability of a hip fracture = or greater than 3% should be considered for pharmacological treatment for the prevention of osteoporosis. 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 LEFT HIP: Total BMD is 0.870 g/cm2 T-score is -1.1 This is increased in comparison to prior exam which is not statistically significant. Femoral neck BMD is 0.865 g/cm2 T-score is -1.2 FRAX: 10 year risk for a major osteoporotic fracture is 11.5 %, 10 year risk for a hip fracture is 2.3 % THIS IS AN ELECTRONICALLY VERIFIED FINAL REPORT 06/13/2023 5:27 PM - Electronically signed by Adeel Vinson M.D. 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 LEFT HIP: Total BMD is 0.870 g/cm2 T-score is -1.1 This is increased in comparison to prior exam which is not statistically significant. Femoral neck BMD is 0.865 g/cm2 T-score is -1.2 FRAX: 10 year risk for a major osteoporotic fracture is 11.5 %, 10 year risk for a hip fracture is 2.3 % THIS IS AN ELECTRONICALLY VERIFIED FINAL REPORT 06/13/2023 5:27 PM - Electronically signed by Adeel Vinson M.D. MF: [email or web address] Report ID: [id number] Reading Location: [place] [address] IMPRESSION: Low Bone Mass. REFERENCE: Bone mineral density: Normal (T-score above or = -1.0) Low bone mass (T-score between -1.0 and -2.5) replaces the previously used term osteopenia Osteoporosis (T-score = or below -2.5) Please see below follow up recommendations. Medical evaluation for secondary causes of low bone mineral density may be appropriate. FRAX is a World Health Organization validated fracture risk assessment tool that calculates a person's 10 year probability of a major osteoporosis related fracture and hip fracture. According to the National Osteoporosis Foundation guidelines, postmenopausal women and men age 50 or older with low bone mass and a 10 year probability of a major osteoporosis related fracture = or greater than 20% or a 10 year probability of a hip fracture = or greater than 3% should be considered for pharmacological treatment for the prevention of osteoporosis. For further information, including treatment recommendations, please refer to the 2019 ISCD Official Positions (http://www.iscd.org) and the NOF's Clinician's Guide to Prevention and Treatment of Osteoporosis (http://www.nof.org/professionals/clinical-guidelines) Duke Inez Harden MD IMSharon DEXA ORDERABLES Brittany mace Result from Last 3 Months or Most Recently Relevant to Health Maintenance Insurance MEDICARE C [facility] Care Teams Hand Printed Circuit Board Assembler Relationship Specialty Start Date End Date Fly Mays [facility] [address] [place] [address] PCP - General Physician Medical Scientist 01/18/21 Fly Canales MD Consulting Physician Radiation Oncology 02/18/17 Dom Nair MD Consulting Physician General Surgery 03/24/17 Duke Harden MD [address] [place] [address] Consulting Physician Medical Oncology 01/11/20
--- OUTSIDE RECORDS SUMMARY | 2025-03-30 10:17 | XMS_ITS | Encounter Summary ---
Author Organization [facility] Address [address] [place] [address] Phone Care Team Providers Care Distribution Clerk Name Role Phone Fly Canales MD Unavailable Dom Nair MD Unavailable Unavailable Duke Harden MD Unavailable Aurora Wynn APRN, CNP Unavailable [phone] Fly Mays Primary Care Provider [phone] Reason for Visit * Reason Comments Medication Refill Encounter Details Date Type Department Care Team (Late st Contact Info) Description 06/23/2021 Refill [facility] - Neu[facility] [address] [place] [address] Larry Duke MD [address] [place] [address] Medication Refill Social History Tobacco Use Types [...] Exposure Response Date Recorded In the last month, have you been in contact with someone who was confirmed or suspected to have Coronavirus / COVID-19? No / Unsure 05/28/2021 2:12 PM MACHINE STUFFER documented as of this encounter Plan of Treatment Upcoming Encounters Date Type Department Care Team (Late st Contact Info) Description 04/05/2025 1:20 PM MACHINE STUFFER Office Visit [facility] Oncology Services [address] [place] [address] Duke Harden MD [address] [place] [address] Discharge Disposition: Discharged to home or Selfcare 04/05/2025 2:00 PM MACHINE STUFFER Clinical Support [facility] Oncology Services [address] [place] [address] Duke Harden MD [address] [place] [address] Discharge Disposition: Discharged to home or Selfcare documented as of this encounter Visit Diagnoses Not on filedocumented in this encounter Care Teams Distribution Clerk Relationship Specialty Start Date End Date Fly Mays PAC [address] [place] [address] PCP - General Physician Manager Security And Safety 01/18/21 Fly Canales MD Consulting Physician Radiation Oncology 02/18/17 Dom Nair MD Consulting Physician General Surgery 03/24/17 Duke Harden MD [address] [place] [address] Consulting Physician Medical Oncology 01/11/20 Aurora Wynn, SANTO, NET WASHER [address] [place] [address] Nurse Practitioner Medical Oncology 01/17/21 01/22/22 documented as of this encounter
--- OUTSIDE RECORDS SUMMARY | 2025-03-30 10:17 | XMS_ITS | Encounter Summary ---
Author Organization [facility] Address [address] [place] [address] Care Team Providers Care Academic Vice President Name Role Phone Unavailable Primary Care Provider Unavailabl e Encounter Details Date Type Department Care Team (Late st Contact Info) Description 04/14/2020 Lab Requisition [facility] DermPath Lab [address] [place] [address] Vicente Bonilla MD [address] [place], [place] [id number] Social History Tobacco Use Types Packs/Day Years Used Date Smoking Tobacco: Never Assessed Comments Unknown Sex and Gender Information Value Date Recorded Sex Assigned at Not on file Legal Sex Female 11:13 AM PROJECT ENGINEER Gender Identity Not on file Sexual Orientation Not on file documented as of this encounter Plan of Treatment Not on file documented as of this encounter Procedures Procedure Name Priority Date/Time Associated Diagnosis Comments DERMATOPATHOLOGY Routine 04/13/2020 3:33 AM PROJECT ENGINEER documented in this encounter Results * DERMATOPATHOLOGY (04/13/2020 3:33 AM PROJECT ENGINEER) Case Report Dermatopathology Report Case: [id number] Authorizing Provider: Vicente Bonilla MD Collected: 04/13/2020 03:33 AM Ordering Location: [facility] Received: 04/14/2020 05:47 AM Pathologist: Aurora Matthew MD Specimen: Skin, right lower eyelid 0 3:47 PM PROJECT ENGINEER DERMATOPATHOLOGY LABORATORY Final Diagnosis Specimen A. SKIN, right lower eyelid: RUPTURED EPIDERMOID CYST (L72.0) 0 3:47 PM PROJECT ENGINEER DERMATOPATHOLOGY LABORATORY at 1547 PROJECT ENGINEER Clinical History BCC vs angioma. Path # [id number]. 0 3:47 PM PROJECT ENGINEER DERMATOPATHOLOGY LABORATORY Gross Description Specimen A: Received is one formalin filled container labeled with the patient's name and designated right lower eyelid. The specimen consists of a shave biopsy measuring [id number]. Jar 0. 0 3:47 PM PROJECT ENGINEER DERMATOPATHOLOGY LABORATORY Microscopic Description Specimen A. SKIN, right lower eyelid: Within the dermis, there is an infiltrate composed of lymphocytes and histiocytes, including multinucleated type giant cells. Some histiocytes contain flakes of material consistent with keratin. 0 3:47 PM PROJECT ENGINEER DERMATOPATHOLOGY LABORATORY Disclaimer An external and internal positive and negative controls are appropriate for the histochemical, immunohistochemical and immunofluorescence stain(s) in this case (if any), except where stated explicitly. The performance characteristics of the stain(s) cited in this report were developed and its performance characteristic determined by the Dermatopathology Laboratory at [facility], directed by Dr. Jocy Hess. These tests need not be, and therefore are not, approved by the [place] Food and Drug Administration. The tests are used for clinical purposes. Billing Codes Specimen Charges Stain Charges 10061 1 0 3:47 PM PROJECT ENGINEER DERMATOPATHOLOGY LABORATORY Embedded Images 0 3:47 PM PROJECT ENGINEER DERMATOPATHOLOGY LABORATORY Pathology/Cytolo gy TISSUE SPECIMEN FROM SKIN / Unknown 04/13/2020 3:33 AM PROJECT ENGINEER 04/14/2020 5:47 AM PROJECT ENGINEER Vicente Bonilla MD LAB - PATHOLOGY/CYTOLOGY ORDER BRIANDA Final Result DERMATOPATHOLOGY LABORATORY [facility] - Department of Dermatology [address] [place] [address], [facility] [phone] documented in this encounter Visit Diagnoses Not on filedocumented in this encounter
--- OUTSIDE RECORDS SUMMARY | 2025-03-30 10:17 | XMS_ITS | Data Portability ---
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 Plan of Treatment Reminders Order Date Submit Date Provider Last Modified By Organization Details Last Modified Time Details Appointments None recorded. Lab CBC 2023 [facility], [address] [facility], [facility], [place], [address], 09:15:22 CMP, serum or plasma 2023 [facility], [address] [facility], [facility], [place], [address], 09:15:20 lipid panel, serum 2023 [facility], [address] [facility], [facility], [place], [address], 09:15:19 HbA1c (hemoglobin A1c), blood 2023 024 [facility] In-Office Order, Internal Use Only DO Not Attach Compendium DO Not Attach Compendium, Do Not Delete/merge, [id number] 15:23:48 HbA1c (hemoglobin A1c), blood 05/28/ 2024 05/28/2 024 [email or web address] In-Office Order, Internal Use Only DO Not Attach Compendium DO Not Attach Compendium, Do Not Delete/merge, [id number] 16:39:32 Referral None recorded. Procedures None recorded. Surgeries None recorded. Imaging None recorded. Medication Orders atorvastati n 10 mg tablet 2024 025 [place] [facility], [facility], [facility] [address], [place], [place], [id number], 16:10:47 losartan 50 mg tablet 2024 025 [place] [facility], [address], [facility] [address], [place], [place], [id number], 10:32:53 Patient TargetsNo targets recorded. Patient Instructions Encounter Date Encounter Id Patient Instructions Last Modified By Organization Details Last Modified Time 04/25/2023 [id number] A healthy lifestyle: care instructions jnanney Not available 04/25/2023 11:44:08 type 2 diabetes: care instructions jnanney Not available 04/25/2023 11:44:08 learning about high blood pressure jnanney Not available 04/25/2023 11:44:08 09/23/2023 [id number] type 2 diabetes: care instructions jnanney Not available 09/23/2023 16:39:32 02/23/2024 [id number] A healthy lifestyle: care instructions jnanney Not available 02/23/2024 15:22:12 alzheimer's disease: care instructions jnanney Not available 02/23/2024 15:22:12 learning about high blood pressure jnanney Not available 02/23/2024 15:22:12 type 2 diabetes: care instructions jnanney Not available 02/23/2024 15:22:12 05/24/2024 [id number] A healthy lifestyle: care instructions jnanney Not available 05/24/2024 10:32:24 learning about high blood pressure jnanney Not available 05/24/2024 10:32:24 11/02/2024 [id number] learning about high blood pressure jnanney Not available 11/02/2024 16:10:37 A healthy lifestyle: care instructions jnanney Not available 11/02/2024 16:10:37 Reason for Referral None Reported. Results Created Date Observation Date Name Description Value Unit Range Abnormal Flag Note LastModifiedBy Organization Detail LastModifiedTime 09/23/1909/23/2023 HbA1c (hemo globi n A1c), blood HbA1c 6.0 Not Available In-Office Order Internal Use Only DO Not Attach Compendium DO Not Attach Compendium, Do Not Delete/merge, [id number] 09/23/2023 09:20:28 02/23/2002/24/2024 LIPID PANEL cholesterol, total 173 mg/dL 100-19 9 Not Available [address], [address], 02/24/2024 09:15:19 02/23/2002/24/2024 LIPID PANEL triglyceride s 147 mg/dL 0-149 Not Available [address], [address], 02/24/2024 09:15:19 02/23/2002/24/2024 LIPID PANEL HDL cholesterol 63 mg/dL >39 Not Available [address], [address], 02/24/2024 09:15:19 02/23/2002/24/2024 LIPID PANEL VLDL cholesterol beatris 25 mg/dL 5-40 Not Available [address], [address], 02/24/2024 09:15:19 02/23/2002/24/2024 LIPID PANEL LDL chol calc ([facility]) 85 mg/dL 0-99 Not Available [address], [address], 02/24/2024 09:15:19 02/23/2002/24/2024 COMP. METAB OLIC PANEL (14) glucose 97 mg/dL 70-99 Not Available [facility] [address], [address], 02/24/2024 09:15:20 02/23/2002/24/2024 COMP. METAB OLIC PANEL (14) BUN 26 mg/dL 8-27 Not Available [address], [address], 02/24/2024 09:15:20 02/23/20 24 02/24/2024 COMP. METAB OLIC PANEL (14) creatinine 0.95 mg/dL 0.57-1 .00 Not Available [address], [address], 02/24/2024 09:15:20 02/23/2002/24/2024 COMP. METAB OLIC PANEL (14) eGFR 61 mL/mi n/1.7 3 >59 Not Available [address], [address], 02/24/2024 09:15:20 02/23/2002/24/2024 COMP. METAB OLIC PANEL (14) BUN/creatini ne ratio 27 12-28 Not Available [address], [address], 02/24/2024 09:15:20 02/23/2002/24/2024 COMP. METAB OLIC PANEL (14) sodium 140 mmol/ L 134-14 4 Not Available [address], [address], 02/24/2024 09:15:20 02/23/2002/24/2024 COMP. METAB OLIC PANEL (14) potassium 4.2 mmol/ L 3.5-5. 2 Not Available [address], [address], 02/24/2024 09:15:20 02/23/2002/24/2024 COMP. METAB OLIC PANEL (14) chloride 97 mmol/ L 96-106 Not Available [address], [address], 02/24/2024 09:15:20 02/23/20 24 02/24/2024 COMP. METAB OLIC PANEL (14) carbon dioxide, total 28 mmol/ L 20- Not Available [address], [address], 02/24/2024 09:15:20 02/23/2002/24/2024 COMP. METAB OLIC PANEL (14) calcium 10.1 mg/dL 8.7-10 .3 Not Available [address], [address], 02/24/2024 09:15:20 02/23/2002/24/2024 COMP. METAB OLIC PANEL (14) protein, total 6.8 g/dL 6.0-8. 5 Not Available [address], [address], 02/24/2024 09:15:20 02/23/20 24 02/24/2024 COMP. METAB OLIC PANEL (14) albumin 4.4 g/dL 3.8-4. 8 Not Available [address], [address], 02/24/2024 09:15:20 02/23/20 24 02/24/2024 COMP. METAB OLIC PANEL (14) globulin, total 2.4 g/dL 1.5-4. 5 Not Available [address], [address], 02/24/2024 09:15:20 02/23/20 24 02/24/2024 COMP. METAB OLIC PANEL (14) bilirubin, total 0.4 mg/dL 0.0-1. 2 Not Available [address], [address], 02/24/2024 09:15:20 02/23/20 24 02/24/2024 COMP. METAB OLIC PANEL (14) alkaline phosphatase 77 IU/L 44-121 Not Available [address], [address], 02/24/2024 09:15:20 02/23/20 24 02/24/2024 COMP. METAB OLIC PANEL (14) AST (SGOT) 19 IU/L 0-40 Not Available [address], [address], 02/24/2024 09:15:20 02/23/20 24 02/24/2024 COMP. METAB OLIC PANEL (14) ALT (SGPT) 15 IU/L 0-32 Not Available [address], [address], 02/24/2024 09:15:20 02/23/2002/24/2024 CARDI OVASC ULAR REPOR T interpretati on Note Suppl eduardo al repor t is avail able. Not Available [address], [address], 02/24/2024 09:15:22 02/23/20 24 02/24/2024 CARDI OVASC ULAR REPOR T pdf . Not Available [address], [address], 02/24/2024 09:15:22 02/23/2002/24/2024 CBC, PLATE LET, NO DIFFE RENTI AL WBC 9.5 x10e3 /uL 3.4-10 .8 Not Available [address], [address], 02/24/2024 09:15:22 02/23/2002/24/2024 CBC, PLATE LET, NO DIFFE RENTI AL RBC 4.35 x10e6 /uL 3.77-5 .28 Not Available [address], [address], 02/24/2024 09:15:22 02/23/2002/24/2024 CBC, PLATE LET, NO DIFFE RENTI AL hemoglobin 12.6 g/dL 11.1-1 5.9 Not Available [address], [address], 02/24/2024 09:15:22 02/23/2002/24/2024 CBC, PLATE LET, NO DIFFE RENTI AL hematocrit 40.1 % 34.0-4 6.6 Not Available [address], [address], 02/24/2024 09:15:22 02/23/2002/24/2024 CBC, PLATE LET, NO DIFFE RENTI AL MCV 92 fL 79-97 Not Available [address], [address], 02/24/2024 09:15:22 02/23/2002/24/2024 CBC, PLATE LET, NO DIFFE RENTI AL MCH 29.0 pg 26.6-3 3.0 Not Available [address], [address], 02/24/2024 09:15:22 02/23/2002/24/2024 CBC, PLATE LET, NO DIFFE RENTI AL MCHC 31.4 g/dL 31.5-3 5.7 below low normal Not Available [address], [address], 02/24/2024 09:15:22 02/23/202024 CBC, PLATE LET, NO DIFFTram RAE AL RDW 12.6 % 11.7-1 5.4 Not Available [address], [address], 02/24/2024 09:15:22 02/23/20 24 02/24/2024 CBC, PLATE LET, NO DIFFTram REA AL platelets 324 x10e3 /uL 150-45 0 Not Available [address], [address], 02/24/2024 09:15:22 02/23/2002/23/2024 HbA1c (hemo globi n A1c), blood HbA1c 6.2 Not Available In-Office Order Internal Use Only DO Not Attach Compendium DO Not Attach Compendium, Do Not Delete/merge, [id number] 02/23/2024 15:16:05 09/24/1909/23/2024 Compr ehens edis metab olic 1999 panel - Serum or Plasm a sodium [moles/volum e] in serum or plasma 140 mmol/ L low: 136mmo l/Lhig h: 145mmo l/L Not Available Not Available 11/02/2024 04:10:57 09/24/1909/23/2024 Compr ehens edis metab olic 1999 panel - Serum or Plasm a potassium [moles/volum e] in serum or plasma 4 mmol/ L low: 3.5mmo l/Lhig h: 5.1mmo l/L Not Available Not Available 11/02/2024 04:10:57 09/24/1909/23/2024 Compr ehens edis metab olic 1999 panel - Serum or Plasm a chloride [moles/volum e] in serum or plasma 103 mmol/ L low: 98mmol /Lhigh : 107mmo l/L Not Available Not Available 11/02/2024 04:10:57 09/24/19 25 09/23/2024 Compr ehens edis metab olic 1999 panel - Serum or Plasm a carbon dioxide, total [moles/volum e] in serum or plasma 29 mmol/ L low: 22mmol /Lhigh : 30mmol /L Not Available Not Available 11/02/2024 04:10:57 09/24/1909/23/2024 [facility] [employer] Unique olic 1999 panel - Serum or Plasm a anion gap in serum or plasma by calculation 12 mmol/ L high: 18mmol /L Not Available Not Available 11/02/2024 04:10:57 09/24/19 25 09/23/2024 [facility] [employer] V[employer] Unique olic 1999 panel - Serum or Plasm a glucose [mass/volume ] in serum or plasma 133 mg/dL low: 70mg/d Lhigh: 99mg/d L high Not Available Not Available 11/02/2024 04:10:57 09/24/1909/23/2024 [facility] [employer] Unique olic 1999 panel - Serum or Plasm a urea nitrogen [mass/volume ] in serum or plasma 19 mg/dL low: 10mg/d Lhigh: 20mg/d L Not Available Not Available 11/02/2024 04:10:57 09/24/1909/23/2024 [facility] [employer] Unique olic 1999 panel - Serum or Plasm a creatinine [mass/volume ] in serum or plasma 0.99 mg/dL low: 0.6mg/ dLhigh : 1mg/dL Not Available Not Available 11/02/2024 04:10:57 09/24/1909/23/2024 [facility] [employer] Unique olic 2000 panel - Serum or Plasm a urea nitrogen/cre atinine [mass ratio] in serum or plasma 19 text: 12 - 20 ratio Not Available Not Available 11/02/2024 04:10:57 09/24/1909/23/2024 [facility] [employer] Unique olic 1999 panel - Serum or Plasm a protein [mass/volume ] in serum or plasma 6.7 g/dL low: 6g/dLh igh: 8g/dL Not Available Not Available 11/02/2024 04:10:57 09/24/1909/23/2024 [facility] [employer] Unique olic 2000 panel - Serum or Plasm a albumin [mass/volume ] in serum or plasma 4.2 g/dL low: 3.5g/d Lhigh: 5g/dL Not Available Not Available 11/02/2024 04:10:57 09/24/1909/23/2024 Compr ehens edis metab olic 1999 panel - Serum or Plasm a albumin/glob ulin [mass ratio] in serum or plasma 1.7 low: 1high: 2.2 Not Available Not Available 11/02/2024 04:10:57 09/24/1909/23/2024 Compr ehens edis metab olic 1999 panel - Serum or Plasm a calcium [mass/volume ] in serum or plasma 9.6 mg/dL low: 8.7mg/ dLhigh : 10.5mg /dL Not Available Not Available 11/02/2024 04:10:57 09/24/1909/23/2024 Compr ehens edis metab olic 1999 panel - Serum or Plasm a bilirubin.to daryn [mass/volume ] in serum or plasma 0.4 mg/dL low: 0.2mg/ dLhigh : 1.2mg/ dL Not Available Not Available 11/02/2024 04:10:57 09/24/1909/23/2024 Compr ehens edis metab olic 1999 panel - Serum or Plasm a aspartate aminotransfe rase [enzymatic activity/vol ume] in serum or plasma 18 U/L high: 43U/L Not Available Not Available 11/02/2024 04:10:57 09/24/1909/23/2024 Compr ehens edis metab olic 2000 panel - Serum or Plasm a alanine aminotransfe rase [enzymatic activity/vol ume] in serum or plasma 13 U/L high: 56U/L Not Available Not Available 11/02/2024 04:10:57 09/24/1909/23/2024 Compr ehens edis metab olic 1999 panel - Serum or Plasm a alkaline phosphatase [enzymatic activity/vol ume] in serum or plasma 72 U/L low: 40U/Lh igh: 150U/L Not Available Not Available 11/02/2024 04:10:57 09/24/1909/23/2024 Compr ehens edis metab olic 2000 panel - Serum or Plasm a IS the patient required to BE fasting? No Not Available Not Available 11/02/2024 04:10:57 09/24/1909/23/2024 Compr ehens edis metab olic 2000 panel - Serum or Plasm a glomerular filtration rate [volume rate/area] in serum, plasma or blood by creatinine-b ased formula (CKD-epi 2020)/1.73 sq M 58 low: 60 low Creat inine Clear rocio is the prefe rred crite frieda for selec ting drug dose adjus tment s in renal ly impai red patie nts. The GFR is provi ded as addit ional perti nent clini beatris infor matio n. GFR is repor tila in mL/mi n/1.7 3 sq m. Calcu latio n based on the Chron ic Kidne y Disea se Epide miolo gy Colla borat ion (CKD- EPI) equat ion refit witho ut adjus tment for race. Not Available Not Available 11/02/2024 04:10:57 09/24/19 25 09/23/2024 Compr ehens edis metab olic 2000 panel - Serum or Plasm a glomerular filtration rate [volume rate/area] in serum, plasma or blood by creatinine-b ased formula (MDRD)/1.73 sq M among black population low: 60 Not Available Not Available 11/02/2024 04:10:57 09/24/19 25 09/23/2024 Compr ehens edis metab olic 2000 panel - Serum or Plasm a glomerular filtration rate [volume rate/area] in serum, plasma or blood by creatinine-b ased formula (MDRD)/1.73 sq M among non black population 54 low: 60 low Not Available Not Available 11/02/2024 04:10:57 09/24/19 25 09/23/2024 Compr ehens edis metab olic 2000 panel - Serum or Plasm a interpretati on and review of laboratory results Abnorm al Not Available Not Available 04:10:57 06/25/19 25 06/25/2024 CT, brain , w/o contr ast No observ ation [facility] ed[facility] [address] [facility], [place], [address], 06/25/2024 15:10:46 06/25/19 25 06/25/2024 CT, cervi beatris spine , w/o contr ast No observ ation record ed. [email or web address] [address] [place], [address], 06/25/2024 15:41:35 Result Notes None recorded. Problems Name Problem SNOMED Code Status Onset Date Resolution Date Notes Provider Name and Address Organization Details Recorded Time Essential hypertension 85480733 Active 2021 Not Available [facility] 2 08:04:06 Chronic depression 369313561 Active 2021 Not Available [facility] Problem Notes None recorded. Procedures Surgical History Date Name Laterality Status Provider Name and Address Organization Details Recorded Time 04/11/20 22 Date of Last Mammogram completed Katelin Tadeo MA [place] - [facility] 06/04/2022 10:03:40 04/28/19 18 colonoscopy completed Dee Valerio [place] - [facility] 12/15/2020 10:42:13 04/28/18 82 Total hysterectomy completed Dee Valerio [place] - [facility] 12/15/2020 10:24:50 04/28/18 74 Tubal Ligation completed Dee Valerio [place] - [facility] 12/15/2020 10:24:34 04/28/18 49 Tonsillectomy completed Dee Valerio [place] - [facility] 12/15/2020 10:23:54 Eye Surgery completed Katelin Tadeo MA [place] - [facility] 04/01/2022 10:11:55 Imaging Results None recorded. Procedure Notes None recorded. Medical Equipment None Reported. Allergies Allergen ID Allergen Name Allergen Category Reaction Reaction Severity Criticality Documentation Date Start Date Code Code System Note Provider Name and Address Organization Details Recorded Time [id number] Celebrex medicatio n itching Not available Not available 12/15/2020 54735 7 RxNorm Swell ing Dee Valerio MA null, [place] - [facility] 10:11:18 Medications Name Sig Start Date Stop Date Status Note LastModified by Organization Details LastModified Time losartan 50 mg tablet TAKE 1 TABLET BY MOUTH DAILY 2024 active Not Available Not Available Not Avai lable quetiapine 25 mg tablet TAKE 1/2 1 TABLET BY MOUTH AT BEDTIME 04/01 completed Not Available Not Available Not Available metformin 500 mg tablet TAKE 1 TABLET BY MOUTH DAILY 02/22 completed Not Available Not Available Not Available anastrozole 1 mg tablet TAKE 1 TABLET BY MOUTH EVERY DAY active Not Available Not Available No t Available primidone 50 mg tablet TAKE 1 TABLET BY MOUTH EVERYDAY AT BEDTIME 12/15 completed Not Available Not Available Not Available donepezil 5 mg tablet Take 1 tablet every day by oral route. 05/24 completed Not Available Not Available Not Available atorvastati n 10 mg tablet TAKE 1 TABLET BY MOUTH DAILYN EEDS APPT BEFORE NEXT REFILL 2024 active Not Available Not Available Not Avai lable donepezil 10 mg tablet TAKE 1 TABLET BY MOUTH EVERY DAY active Not Available Not Available No t Available lisinopril 20 mg tablet TAKE 1 TABLET BY MOUTH EVERY DAY 07/01 completed Not Available Not Available Not Available atenolol 50 mg-chlortha lidone 25 mg tablet TAKE 1 TABLET BY MOUTH DAILY 05/24 completed Not Available Not Available Not Available clobetasol 0.05 % topical cream APPLY TO AFFECTED AREA TWICE A DAY FOR 10 DAYS 05/24 completed Not Available Not Available Not Available triamcinolo ne acetonide 0.1 % topical cream APPLY THIN FILM TO AFFECTED AREA ON LEGS TWICE A DAY FOR 2 WEEKS 05/24 completed Not Available Not Available Not Available propranolol ER 80 mg capsule,24 hr,extended release TAKE 1 CAPSULE BY MOUTH AT BEDTIME 12/15 completed Not Available Not Available Not Available aspirin 81 mg chewable tablet Chew 1 tablet every day by oral route. 11/02 completed Not Available Not Available Not Available lisinopril 5 mg tablet TAKE 1 TABLET BY MOUTH EVERY DAY 04/01 completed Not Available Not Available Not Available diclofenac sodium 50 mg tablet,mark yed release 07/29 completed Not Available Not Available Not Available mirtazapine 15 mg tablet TAKE 1/2 TABLET BY MOUTH EVERY DAY AT BEDTIME 10/15 completed Not Available Not Available Not Available propranolol ER 120 mg capsule,24 hr,extended release TAKE 1 (ONE) CAPSULE BY MOUTH AT BEDTIME 07/22 completed Not Available Not Available Not Available methylpredn isolone 4 mg tablets in a dose pack TAKE 6 TABLETS ON DAY 1 DIRECTED ON PACKAGE AND DECREASE BY 1 TAB EACH DAY FOR A TOTAL OF 6 DAYS 11/02 completed Not Available Not Available Not Available lisinopril 40 mg tablet TAKE 1 TABLET BY MOUTH DAILY 10/15 completed Not Available Not Available Not Available sertraline 50 mg tablet TAKE 1 TABLET BY MOUTH DAILY 2024 active Not Available Not Available Not Avai lable doxycycline hyclate 100 mg tablet TAKE 1 TABLET BY MOUTH EVERY TWELVE HOURS DIRECTED ANTIBIOTI C-TAKE UNTIL COMPLETE 04/01 completed Not Available Not Available Not Available atenolol 50 mg tablet Take 1 tablet every day by oral route for 90 days. 09/30 completed Not Available Not Available Not Available naproxen 500 mg tablet TAKE 1 TABLET BY MOUTH TWICE A DAY 04/01 completed Not Available Not Available Not Available cyclobenzap rine 5 mg tablet TAKE 1 TABLET BY MOUTH TWICE A DAY NEEDED FOR PAIN active Not Available Not Available No t Available Restasis 0.05 % eye drops in a dropperette APPLY 1 DROP TWICE DAILY 04/01 completed Not Available Not Available Not Available memantine 10 mg tablet TAKE HALF TABLET BY MOUTH TWICE A DAY FOR TWO WEEKS, THEN ONE TABLET BY MOUTH TWICE A DAY active Not Available Not Available No t Available Vitamin D3 active Not Available Not Av ailable Not Available multivitami n 04/01 completed Not Available Not Available Not Available Calcium 500 05/24 completed Not Available Not Available Not Available vitamin Q05-amzvq acid active Not Available Not Available Not Available rivastigmin e 4.6 mg/24 hour transdermal patch APPLY 1 PATCH TOPICALLY EVERY DAY 04/01 completed Not Available Not Available Not Available diclofenac 1 % topical gel APPLY 2 GRAMS TO THE AFFECTED AREA(S) BY TOPICAL ROUTE 4 TIMES PER DAY 10/15 completed Not Available Not Available Not Available Prolia active Not Available Not Availa ble Not Available OneTouch Verio test strips USE TO TEST BLOOD SUGAR TWICE A DAY active Not Available Not Available No t Available OneTouch Verio Flex Meter USE DIRECTED active Not Available Not Available No t Available OneTouch Delica Plus Lancet 33 gauge USE TO TEST TWICE A DAY active Not Available Not Available No t Available Vitals Date Recorded Body height Body mass index (BMI) Body weight Oxygen saturation Heart rate Systolic And Diastolic Provider Name and Address Organization Details Last Updated DateTime 5 154.94 cm 33.8 kg/m2 64165.0 3 g 96 % 67 /min 112/60 mm[Hg] Dee Valerio MA [facility] 5 10:10:59 Date Recorded Body height Body mass index (BMI) Body weight Oxygen saturation Heart rate Systolic And Diastolic Provider Name and Address Organization Details Last Updated DateTime 4 154.94 cm 35.6 kg/m2 56562.7 7 g 98 % 64 /min 120/66 mm[Hg] Yumiko Soliz MA [facility] 4 15:56:52 Date Recorded Systolic And Diastolic Provider Name and Address Organization Details Last Updated DateTime 11/02/2024 130/66 mm[Hg] Jessica Mays PA-C Attn: [employer] [place], [address], [facility] 11/02/2024 16:08:24 Date Recorded Body height Body mass index (BMI) Body weight Oxygen saturation Heart rate Provider Name and Address Organization Details Last Updated DateTime 11/02/2024 154.94 cm 32.7 kg/m2 22018.48 g 95 % 90 /min Dee Valerio MA [facility] 5 15:38:48 Date Recorded Body height Body mass index (BMI) Body weight Oxygen saturation Heart rate Systolic And Diastolic Provider Name and Address Organization Details Last Updated DateTime 4 154.94 cm 34.8 kg/m2 63440 g 97 % 65 /min 118/82 mm[Hg] Yumiko Soliz MA [facility] 4 14:53:43 Date Recorded Body height Body mass index (BMI) Body weight Oxygen saturation Heart rate Systolic And Diastolic Provider Name and Address Organization Details Last Updated DateTime 3 154.94 cm 34 kg/m2 17319.6 3 g 94 % 66 /min 126/79 mm[Hg] Dee Valerio MA [facility] 3 11:19:45 Social History Question Answer Notes LastModified by Organizat ion Details LastModified Time Tobacco Smoking Status Never Smoker Dee Valerio MA [facility], [place] - [facility] 12/15/2020 10:22:37 Are You Blind Or Do You Have Difficulty Seeing? Yes Reading Glasses Information not available 06/04/2022 What Is Your Level Of Caffeine Consumption? Moderate Information not available 04/01/2022 In The 14 Days Before Symptom Onset, Have You Had Close Contact With A Laboratory-confir med COVID-19 While That Case Was Ill? No Information not available 12/15/2020 In The 14 Days Before Symptom Onset, Have You Had Close Contact With A Person Who Is Under Investigation For COVID-19 While That Person Was Ill? No Information not available 12/15/2020 Have You Been To An Area Known To Be High Risk For COVID-19? No Information not available 12/15/2020 Are You Deaf Or Do You Have Serious Difficulty Hearing? No Information not available 04/01/2022 What Type Of Diet Are You Following? REGULAR Information not available 12/15/2020 What Was The Date Of Your Most Recent Tobacco Screening? 11/02/2024 Information not available 11/02/2024 What Is Your Relationship Status? Information not available 12/15/2020 Do You Use Your Seat Belt Or Car Seat Routinely? Yes Information not available 12/15/2020 Are You Sexually Active? No [email or web address] Information not available 09/16/2022 Do You Have Smoke And Carbon Monoxide Detectors In Your Home? Yes Information not available 12/15/2020 Are You Passively Exposed To Smoke? No Information no t available 12/15/2020 Do You Use Sunscreen Routinely? Yes Information not available 12/15/2020 Has Tobacco Cessation Counseling Been Provided? No Information not available 12/15/2020 Sex: Female Functional Status Question Answer Note LastModified by Organizat ion Details LastModified Time Do you use any illicit or recreational drugs? No Information not available 12/15/2020 Do you or have you ever used any other forms of tobacco or nicotine? No Information not available 12/15/2020 What is your level of alcohol consumption? None Information not available 12/15/2020 Are you currently employed? No Information not available 12/15/2020 Are you able to care for yourself independently? Yes Information not available 12/15/2020 What is your exercise level? None Information not available 04/01/2022 Mental Status Question Answer Note LastModified by Organization D etails LastModified Time Do you feel stressed (tense, restless, nervous, or anxious, or unable to sleep at night)? [id number] Information not available 06/04/2022 Family History Nothing Reported. Medical History Condition Response Coronary Artery Disease N Other N Atrial Fibrillation N High Blood Pressure Y Depression N COPD N Blood Clots N Anxiety Disorder Y Muscle, Joint, or Bone Problems N Acid Reflux (GERD) Y Cancer Y Stroke N ADHD N High Cholesterol Y Liver Disease N Schizophrenia N Headaches N Thyroid Problems N Kidney or Bladder Problems Y GI Problems Y Eating Disorder N Skin Problems Y Anemia N Heart Attack (MA) N Diabetes Y Seizures/Epilepsy N Asthma N Allergies N Substance Abuse N Hepatitis N Heart Failure N Osteoporosis N Gynecological History Statement/Question Response Date of Last Pap Smear Date of Last Mammogram 04/11/2022 Obstetrics History GPAL:G 0 P 0 0 0 0 Immunizations Vaccine Type Date Status Note Provider Nam e and Address Organization Details Recorded Time COVID-19, mRNA, LNP-S, PF, 30 mcg/0.3 mL dose 1 completed Yumiko Soliz [place] null, [place] - [facility] 02/23/2024 15:27:10 COVID-19, mRNA, LNP-S, PF, 30 mcg/0.3 mL dose 1 completed Yumiko Sol[place] [facility] 02/23/2024 15:27:10 COVID-19, mRNA, LNP-S, PF, 30 mcg/0.3 mL dose 1 completed Yumiko Sol[place] [facility] 02/23/2024 15:27:10 Influenza, split virus, quadrivalent, preservative 2 completed LEESA [place] [facility] 02/23/2024 15:27:10 pneumococcal polysaccharide PPV23 0 [place] [facility] 02/23/2024 15:26:07 Pneumococcal conjugate PCV 13 8 [place] LE[place]A [place] [facility] 02/23/2024 15:26:07 Influenza, high-dose, trivalent, PF 7 [place] LE[place] [facility] 02/23/2024 15:26:07 Influenza, high-dose, trivalent, PF 4 [place] [facility] 02/23/2024 15:26:07 Influenza, high-dose, trivalent, PF 5 [place] [facility] 02/23/2024 15:26:07 Influenza, high-dose, trivalent, PF 6 [place] [facility] 02/23/2024 15:26:07 Influenza, split virus, trivalent, preservative 8 completed [place] [facility] 02/23/2024 15:26:07 zoster recombinant 4 [place] [facility] 02/23/2024 15:27:10 RSV, recombinant, protein subunit RSVpreF, adjuvant reconstituted, 0.5 mL, PF 4 completed LE[place] [facility] 02/23/2024 15:27:10 COVID-19, mRNA, LNP-S, PF, jose-sucrose, 30 mcg/0.3 mL 4 completed LE[place] [facility] 02/23/2024 15:27:10 Influenza, high-dose, trivalent, PF 4 completed [place] [facility] 02/23/2024 15:27:10 Influenza, split virus, trivalent, preservative 2 completed Not Available [facility] 11/02/2024 15:34:18 zoster live 3 completed Not Available [facility] 11/02/2024 15:34:18 Influenza, split virus, quadrivalent, preservative 9 completed Not Available [facility] 11/02/2024 15:34:18 Influenza, split virus, quadrivalent, preservative 0 completed Not Available [facility] 11/02/2024 15:34:18 Influenza, high-dose, quadrivalent, PF 1 completed Not Available [facility] 11/02/2024 15:34:18 Influenza, high-dose, quadrivalent, PF 2 completed Not Available [facility] 11/02/2024 15:34:18 COVID-19, mRNA, LNP-S, bivalent, PF, 30 mcg/0.3 mL dose 2 completed Not Available [facility] 11/02/2024 15:34:18 zoster recombinant 2 completed Not Available [facility] 11/02/2024 15:34:18 Influenza, adjuvanted, quadrivalent, PF 3 completed Not Available [facility] 11/02/2024 15:34:18 COVID-19, mRNA, LNP-S, PF, jose-sucrose, 30 mcg/0.3 mL 3 completed Not Available [facility] 11/02/2024 15:34:18 COVID-19, mRNA, LNP-S, PF, 30 mcg/0.3 mL dose, jose-sucrose 2 completed Dee Valerio MA [facility], [place] - [facility] 08/16/2021 12:51:57 Past Encounters Encounter ID Performer Location Encounter Start Date Encounter Closed Date Diagnosis/Indication Diagnosis SNOMED-CT Code Diagnosis ICD10 Code Diagnosis IMO Codes Diagnosis Note [id number] DONI [place] [address] [place] [address] 12/15/2020 09:51:16 12/15/2020 11:55:43 Parkinson's disease 08700506 G20 Type 2 eugenio betes mellitus without complication 371012759 E11.9 [id number] DONI [place] [address] [place] [address] 05/24/2021 17:32:59 05/24/2021 19:15:23 Type 2 diabetes mellitus without complication 732415187 E11.9 Body mass index 30+ - obesity 818804573 Z68.38 Essential hypertension 01362155 I10 [id number] Jan Kevin MD [facility] [address] [place] [address] 08/16/2021 10:28:08 08/16/2021 11:49:11 Adult health examination 864768581 Z00.00 [id number] Jan Kevin MD [facility] [address] [place] [address] 08/16/2021 10:34:58 08/16/2021 13:01:08 Administration of SARS-CoV-2 mRNA vaccine 7837390450 Z23 [id number] Jan Kevin MD [facility] [address] [place] [address] 10/08/2021 16:36:30 10/08/2021 17:22:35 Acute low back pain 022788601 M54.51 [id number] Jessica Mays PA-C [facility] [address] [place] [address] 04/01/2022 09:51:35 04/01/2022 11:03:31 Obesity 665859024 E66.9 Dyspnea on exertion 6084 5006 R06.09 [id number] Jessica Mays PA-C [facility] [address] [place] [address] 06/04/2022 09:44:05 06/04/2022 11:00:56 Essential hypertension 88357097 I10 Overweight 246661966 E66 .3 [id number] Jessica Mays PA-C [facility] [address] [place] [address] 07/22/2022 10:25:40 07/23/2022 09:24:26 Essential hypertension 20639314 I10 Overweight 081302159 E66 .3 Type 2 eugenio betes mellitus without complication 093873843 E11.9 [id number] [facility] [address] [place] [address] 08/29/2022 09:55:15 08/30/2022 10:24:25 Type 2 diabetes mellitus without complication 655814120 E11.9 try to PA this due to her alzheimers failure to remeber finger stick... 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, senile onset 294444881 G30.1 Essential hypertension 48376283 I10 hold the lisinopril for 2 weeks Overweight 245324919 E66 .3 [id number] Jan Kevin MD [facility] [address] [place] [address] 10/15/2022 18:11:01 10/16/2022 08:38:13 Primary degenerative dementia of the Alzheimer type, senile onset 838700228 G30.1 Essential hypertension 33837742 I10 hold the lisinopril for 2 weeks Overweight 983334222 E66 .3 [id number] Jan Kevin MD [facility] [address] [place] [address] 10/28/2022 16:51:24 10/30/2022 10:43:21 Primary degenerative dementia of the Alzheimer type, senile onset 975538662 G30.1 Essential hypertension 36148929 I10 hold the lisinopril for 2 weeks [id number] Jessica Mays PA-C [facility] [address] [place] [address] 01/27/2023 17:00:19 01/28/2023 14:20:04 Essential hypertension 19573791 I10 hold the lisinopril for 2 weeks 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 Essential hypertension 80521032 I10 hold the lisinopril for 2 weeks Muscle wea kness of limb 709107993 M62.81 Overweight 388167182 E66 .3 [id number] Jessica Mays PA-C [facility] [address] [place] [address] 04/25/2023 11:11:51 04/29/2023 14:23:21 Essential hypertension 85186728 I10 hold the lisinopril for 2 weeks Type 2 eugenio betes mellitus without complication 328265432 E11.9 try to PA this due to her alzheimers failure to remeber finger stick... 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, senile onset 559661043 G30.1 [id number] Jan Kevin MD [facility] [address] [place] [address] 02/23/2024 14:27:26 02/26/2024 09:45:07 Type 2 diabetes mellitus without complication 401354714 E11.9 Essential hypertension 64100018 I10 hold the lisinopril for 2 weeks Alzheimer's disease 2692 9004 G30.1 Overweight 381151709 E66 .3 [id number] Jan Kevin MD [facility] [address] [place] [address] 05/24/2024 09:53:40 05/31/2024 09:12:29 Essential hypertension 79254037 I10 hold the lisinopril for 2 weeks 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, senile onset 527911930 G30.1 Overweight 323258558 E66 .3 [id number] Jan Kevin MD [facility] [address] [place] [address] 11/02/2024 15:31:47 11/03/2024 10:50:38 Essential hypertension 32229130 I10 controlled Osteoarthritis 632862586 M15.0 [id number] Hypercholesterolemia 136 75604 E78.00 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 (MEDICARE REPLACEMENT/A DVANTAGE - HMO) [id number] Paloma Jamaal Priest [id number] Blair Priest Notes Date Note Type Note Provider Name and Address Organization Details Recorded Time 04/25/2023 text/html ROS as noted in the HPI has been splitting her meds and concerned with any interaction... 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 Jessica Mays PA-C Attn: [address] [place], [address], [facility] [place] 09/23/2023 16:11:07 02/23/2024 text/html ROS as noted in the HPI says the metformin is causing bowels to loosen...wonders about getting off it...( is also on donepazil and memantine) Jessica Mays PA-C Attn: [address]ing,[address] [facility], [place], [address], [facility] 02/23/2024 15:24:17 05/24/2024 text/html ROS as noted in the HPI gets dizzy when standing and also when moving about....neuro thinks she sits too much...as she walks she gets steadier... Jessica Mays PA-C Attn: Accounting,[address] [facility], [place], [address], [facility] 05/24/2024 10:33:32 11/02/2024 text/html ROS as noted in the HPI everything is well..no complaints..needs a parking plaquard.. Jessica Mays PA-C Attn: Accounting,[address] [facility], [place], [address], [facility] 11/02/2024 16:11:06 OBGyn Episode No OBEpisode recorded.
--- OUTSIDE RECORDS SUMMARY | 2025-03-30 10:17 | XMS_ITS | Clinical Summary ---
Author Organization [facility] Address [address] [place] [place] [address] Care Team Providers Care Clearance Cutter Name Role Phone Unavailable Primary Care Provider Unavailabl e Source Comments [facility] [employer],non-owned Affiliates and Associated Physician Practices is amultiple site organization consisting of ambulatory clinics and hospital sitesin [place], [place], [place]. This disclosure is being madepursuant to the Care Everywhere program and may not contain all information available regarding this patient. Last updated 18.[facility] [employer] Social History Tobacco Use Types Packs/Day Years Used Date Smoking Tobacco: Never Assessed Comments Unknown Sex and Gender Information Value Date Recorded Sex Assigned at Not on file Legal Sex Female 11:13 AM [employer] Gender Identity Not on file Sexual Orientation Not on file Plan of Treatment Health Maintenance Due Date Last Done Comments BONE DENSITY TESTING 1944 DTAP/TDAP/TD VACCINES (1 - Tdap) 01/03/1963 PNEUMOCOCCAL VACCINE 50+ (1 of 1 - PCV) 01/03/1994 ZOSTER VACCINE (1 of 2) 01/03/1994 Respiratory Syncytial Virus (RSV) Vaccine Pt: or over 60 yrs (1 - 1-dose 75+ series) 01/03/2019 DEPRESSION SCREENING 04/28/2024 COVID-19 VACCINE ( - 2024-2 6 season) 2024 INFLUENZA VACCINE (#1) 2024 HEPATITIS B VACCINE Aged Out No longe r eligible based on patient's age to complete this topic HIB VACCINE Aged Out No longer eligi ble based on patient's age to complete this topic HPV VACCINE Aged Out No longer eligi ble based on patient's age to complete this topic MENINGOCOCCAL (Group B) VACC INE SHARED DECISION-MAKING Aged Out No longer eligibl e based on patient's age to complete this topic MENINGOCOCCAL GROUPS A/C/Y/W VACCINE Aged Out No longer eligible b ased on patient's age to complete this topic Insurance
== END 2025-03-30 09:23 | disposition home or self-care (01) ==
PROVIDERS: PCP Physician Assistant
DX: C50.912 Malignant neoplasm of unspecified site of left female breast (principal); Z17.0 Estrogen receptor positive status [ER+]; M85.80 Other specified disorders of bone density and structure, unspecified site
CPT/HCPCS: 36415; 80053